=== PATIENT | female | born 1930 | race Caucasian/White ===

== ENCOUNTER 2017-09-28 16:06 | Inpatient (IN) | payer MEDICARE ==
[2017-09-28 16:59] LABS: #Eosinphils 0.3 thou/uL (0.0-0.7); #Lymphocytes 1.3 thou/uL (1.20-3.40); #Monocytes 0.5 thou/uL (0.11-0.59); #Neutrophils 6.3 thou/uL (1.40-6.50); %Basophils 0.3 % (0.0-1.0); %Eosinophils 3.7 % (0.0-10.0); %Lymphocytes 14.9 % (21.0-51.0); %Monocytes 5.6 % (0.0-10.0); %Neutrophils 75.4 % (42.0-75.0); Mean Corpuscular HGB CONC 33.7 g/dL (32.0-36.0); Mean Corpuscular Hemoglobin 32.6 pg (27.0-31.0); Mean Corpuscular Volume 96.6 fl (81.0-99.0); Mean Platelet Volume 8.2 fL (7.4-10.4); Platelet Count 240 thou/uL (130-400); RBC Distribution Width 12.6 % (11.5-14.5); Red Blood Cell (RBC) Count 3.99 mill/uL (4.20-5.40); White Blood Cell (WBC) Count 8.4 thou/uL (4.8-10.8)
--- NOTE | 2017-09-28 17:50 | RAD ---
PORTABLE CHEST: Date: 09/28/17 HISTORY: Fall with injury. FINDINGS: Lungs are clear. Heart size mildly enlarged with aortic calcification noted. Bony thorax appears inta ct. No change from exam of 12/27/16 identified. IMPRESSION: No acute findings. POS: [facility]
--- NOTE | 2017-09-28 17:51 | RAD ---
PORTABLE AP PELVISS: Date: 09/28/17 HISTORY: Fall with injury to right hip. FINDINGS: There is a subcapital fracture of the right hip with slight displacement. I cannot exclude a fracture at the root of the right inferior ramus. Prior internal fixation of the left hip with evidence of healing. IMPRESSION: Acute subcapital fracture right hip. Question fracture of root of right inferior ramus. POS: [facility]
--- NOTE | 2017-09-28 17:52 | RAD ---
RIGHT FEMUR 5 VIEWS: Date: 09/28/17 HISTORY: Fall with injury to right hip. FINDINGS: There is a subcapital fracture of the right hip. Femur is otherwise intact with no other femur fractu re seen. Visualized right pelvis appears intact on these views. IMPRESSION: Subcapital fracture right hip. POS: [facility]
[2017-09-28 18:09] LABS: Albumin 3.6 g/dL (3.4-4.8)
[2017-09-28 18:10] LABS: Calcium 9.2 mg/dL (7.8-10.44); Chloride 99 mmol/L (98-107); Magnesium 1.9 mg/dL (1.6-2.6); Potassium 4.6 mmol/L (3.5-5.1); Sodium 131 mmol/L (136-145)
[2017-09-28 18:11] LABS: Globulin 3.2 g/dL (2.4-3.5); Glucose 112 mg/dL (83-110); Protein, Total 6.8 g/dL (6.0-8.3)
[2017-09-28 18:12] LABS: Anion Gap 13 mmol/L (10-20); Carbon Dioxide 24 mmol/L (23-31)
[2017-09-28 18:13] LABS: Bilirubin, Total 0.2 mg/dL (0.2-1.2)
[2017-09-28 18:14] LABS: Alkaline Phosphatase 93 U/L (40-150); Calc. Creatinine Clearance 0 mL/min (70-130); Estimated GFR-MDRD 66
[2017-09-28 18:15] LABS: BUN (Urea Nitrogen) 23 mg/dL (9.8-20.1)
[2017-09-28 18:16] LABS: AST (SGOT) 16 U/L (5-34)
[2017-09-28 18:17] LABS: ALT (SGPT) 14 U/L (8-55)
--- NOTE | 2017-09-28 22:42 | HP ---
Jesse Almendarez PA-C, dictating for Dr. Todd Zimmerman. CONSULTING PHYSICIAN: Eduardo Meyer M.D. CHIEF COMPLAINT: Evaluation status post fall. HISTORY OF PRESENT ILLNESS: This is an 87-year-old female who is a resident at [facility]. She reported she was trying to get out of the bed; her walker was not close enough, and she fe ll onto herself injuring her hip. She denies any LOC, chest pain, shortness of breath, dizziness, or headache prior to the fall or after. Patient denied any blood thinners. She reported muscular pain in her right leg. REVIEW OF SYSTEMS: All 10 systems were reviewed otherwise stated in HPI were negative. PAST MEDICAL HISTORY: Include CHF, breast cancer, and colon cancer that was treated, and hypothyroid ism. PAST SURGICAL HISTORY: Right breast lumpectomy and colon resection. PSYCHIATRIC HISTORY: No psychiatric history. SOCIAL HISTORY: Denies any alcohol, drug, or tobacco use. PHYSICAL EXAMINATION: VITAL SIGNS: Blood pressure 128/77, heart rate of 85, respiratory rate 22, temperature 98.4, 8/10 pa in. O2 sat 96% on 2 liters. GENERAL: The patient is in no acute distress. HEENT: She is atraumatic, normocephalic. No JVD, no masses. Trachea is midline. Cervical spine is intact and nontender. CHEST: Nontender. RESPIRATORY: Clear bilaterally via auscultation. CARDIOVASCULAR: S1, S2, regular rate and rhythm. ABDOMEN: Soft, nontender, nondistended. Pelvis is intact. She is tender more on the right side jax n the left. EXTREMITIES: Upper extremity, 5/5 strength. Sensation intact. Lower extremity, she has got tendern ess to the right hip exacerbated by movement. Pulses are intact bilaterally. No edema. NEUROLOGIC: GCS 15. LABORATORY VALUES: WBC is 8.4, hemoglobin 13, hematocrit 38.5, platelet count 240. Chemistry: Sodi um 131, potassium 4.6, chloride 99, bicarbonate 24, BUN 23, creatinine 0.82. Glucose 112. RADIOLOGIC FINDINGS: Showed femur and pelvis x-ray showed [facility]capital [facility] Chest x-ray shows no acute disease. ASSESSMENT AND PLAN: 1. Status post fall. 2. Right subcapital hip fracture. 3. History of congestive heart failure. 4. History of cancer. 5. Acute traumatic pain. PLAN: Plan will be admit the patient to surgical floor, made n.p.o. after midnight. Continue with I V fluids. Dr. Meyer has been consulted for potential surgery for tomorrow. Pain will be optimize d with IV and p.o. analgesics. We will initiate gastritis and DVT prophylaxis when appropriate. The patient has been discussed with Dr. Zimmerman at the time of dictation and agreeds with the above pl an.
[2017-09-29] MEDS ORDERED: Fleet Enema 133 ML BOT PR PRN (02:00)
[2017-09-29] MEDS ORDERED: traMADol HCl 50 MG TAB PO PRN ×2 (02:00→22:07)
[2017-09-29] MEDS ORDERED: Milk Of Magnesia 30 ML UDCUP PO PRN (02:00)
[2017-09-29] MEDS ORDERED: Ondansetron ODT 4 MG TAB PO PRN (02:00)
[2017-09-29] MEDS ORDERED: Ondansetron HCl/PF 4 MG/2 ML Vial IVP PRN (02:00)
[2017-09-29] MEDS ORDERED: Bisacodyl 10 MG SUPP PR PRN (02:00)
[2017-09-29 02:22] VITALS: BMI 22.5
[2017-09-29] MEDS: D5 0.9% NS w/ 20 mEq KCl 1,000 ML IV SCH ×2 (02:40→19:34)
[2017-09-29] MEDS: Ketorolac Tromethamine 30 MG/ML VIAL IVP SCH ×4 (02:40→20:05)
[2017-09-29 07:50] LABS: #Eosinphils 0.7 thou/uL (0.0-0.7); #Lymphocytes 1.3 thou/uL (1.20-3.40); #Monocytes 0.6 thou/uL (0.11-0.59); #Neutrophils 10.2 thou/uL (1.40-6.50); %Basophils 0.2 % (0.0-1.0); %Eosinophils 5.1 % (0.0-10.0); %Lymphocytes 9.8 % (21.0-51.0); Hemoglobin 12.8 g/dL (12.0-16.0); Mean Corpuscular HGB CONC 32.3 g/dL (32.0-36.0); Mean Corpuscular Hemoglobin 31.8 pg (27.0-31.0); Mean Corpuscular Volume 98.6 fl (81.0-99.0); Mean Platelet Volume 6.9 fL (7.4-10.4); Platelet Count 229 thou/uL (130-400); RBC Distribution Width 12.2 % (11.5-14.5); Red Blood Cell (RBC) Count 4.04 mill/uL (4.20-5.40); White Blood Cell (WBC) Count 12.7 thou/uL (4.8-10.8)
[2017-09-29 08:11] LABS: Anion Gap 11 mmol/L (10-20); BUN (Urea Nitrogen) 26 mg/dL (9.8-20.1); Calc. Creatinine Clearance 52 mL/min (70-130); Calcium 8.8 mg/dL (7.8-10.44); Carbon Dioxide 24 mmol/L (23-31); Chloride 100 mmol/L (98-107); Estimated GFR-MDRD 70; Glucose 102 mg/dL (83-110); Magnesium 2.2 mg/dL (1.6-2.6); Phosphorus 3.2 mg/dL (2.3-4.7); Potassium 4.8 mmol/L (3.5-5.1); Sodium 130 mmol/L (136-145)
[2017-09-29 08:20] LABS: RBC Morphology Normal
[2017-09-29] MEDS: Docusate 100 MG CAP PO SCH ×2 (08:39→20:05)
[2017-09-29] MEDS ORDERED: CEFAZOLIN/Water 2 GM/20 ML SYRINGE SLOW IVP SCH (08:45)
--- NOTE | 2017-09-29 09:11 | CON ---
DATE OF CONSULTATION: 09/29/2017 REQUESTING PHYSICIAN: Dr. Todd Zimmerman CHIEF COMPLAINT: Right hip pain. HISTORY OF PRESENT ILLNESS: The patient is a pleasant 87-year-old lady who resides at [facility]. She reports that on the evening of 09/28/2017, she was getting up from bed and had her walker slide out from underneath her resulting in a fall and injury to her right hip. She reports no loss of consciousness, no shortness of breath, no dizziness prior to or after her fall. Upon arriva l at [place], her sole complaint was that of right groin pain. Of note, the patient is status pos t left hip fracture in 2016. This was an intertrochanteric fracture treated with a TFN device by Dr. Taqueria Sims. PAST MEDICAL HISTORY: Congestive heart failure, history of breast cancer, history of colon cancer th at was treated and hypothyroidism. PAST SURGICAL HISTORY: Includes right breast lumpectomy and colon resection. MEDICATIONS: Tylenol, carvedilol, vitamin B12, folic acid, furosemide, Mucinex p.r.n., Synthroid, li sinopril, melatonin, simvastatin, spironolactone. ALLERGIES: None known. SOCIAL HISTORY: She denies tobacco, alcohol or drug use. FAMILY HISTORY: Noncontributory. REVIEW OF SYSTEMS: Denies recent fevers, chills or sweats. Denies chest pain or shortness of breath . Denies numbness or tingling in the lower extremity. PHYSICAL EXAMINATION: VITAL SIGNS: Temperature 97.5, heart rate of 95, respiratory rate of 20, and blood pressure 154/79. HEENT: Atraumatic, normocephalic. HEART: Shows a regular rate and rhythm without murmurs. LUNGS: Clear to auscultation bilaterally with good breath sounds. Chest wall is nontender. ABDOMEN: Soft with normal bowel sounds and no tenderness. PELVIS: Stable. EXTREMITIES: Remarkable for bilateral upper extremities that are atraumatic at shoulder, elbow, wris t and hand. A left lower extremity with well healed lateral incision from her prior hip surgery. Kn ee, ankle, foot are atraumatic. The right lower extremity remarkable for no significant shortening. The leg is held in a position of comfort of external rotation at the hip. The knee, ankle and foot appear atraumatic. She does have groin pain with log rolling of the thigh. X-RAYS: Two view x-ray of the femur and AP pelvis x-ray shows a subcapital femoral neck fracture wit h impaction and slight valgus alignment. LABORATORY: She was found to have a white count of 8.4, hematocrit 38.5 and 240,000 platelets. ASSESSMENT: The patient is an 87-year-old lady status post ground level fall sustaining an acute rig ht subcapital femoral neck fracture. Past history includes congestive heart failure and cancer. PLAN: At this time, the patient is n.p.o. We will proceed to take her to the operating room for a r ight hip hemiarthroplasty. I have discussed with patient the risks and benefits of the procedure. T he risks include, but are not limited to bleeding, infection, nerve injury, DVT, PE, hip dislocation, loss of limb or life. The patient appears to understand and does wish to proceed. Consent will be obtained prior to surgery.
[2017-09-29] MEDS ORDERED: Carvedilol 6.25 MG TAB PO SCH (10:15)
[2017-09-29] MEDS ORDERED: Fentanyl 100 MCG/2 ML VIAL ONE ×3 (11:22→13:40)
[2017-09-29] MEDS ORDERED: Midazolam HCl 2 mg/2 ml Vial ONE (11:22)
[2017-09-29] MEDS ORDERED: Dexamethasone 4 mg/ml Vial ONE (11:38)
[2017-09-29] MEDS ORDERED: CEFAZOLIN/Water 2 GM/20 ML SYRINGE ONE (12:07)
[2017-09-29] MEDS ORDERED: Bupivacaine PF 0.5% 30 ML VIAL ONE (13:43)
[2017-09-29] MEDS ORDERED: Bupivacaine HCl 0.5%/Epinephrine 1:200,000/PF 30 ml Vial ONE (13:43)
[2017-09-29] MEDS ORDERED: Metoprolol Tartrate 5 MG/5 ML VIAL ONE (13:45)
[2017-09-29] MEDS ORDERED: Propofol 200 MG/20 ML VIAL ONE (13:45)
--- NOTE | 2017-09-29 16:58 | EKG ---
Test Reason : Blood Pressure : / mmHG Vent. Rate : 084 BPM Atrial Rate : 084 BPM P-R Int : 182 ms QRS Dur : 094 ms QT Int : 404 ms P-R-T Axes : 038 015 117 degrees QTc Int : 477 ms Sinus rhythm with occasional Premature ventricular complexes Possible Left atrial enlargement Abnormal ECG When compared with ECG of 27-DEC-2016 05:31, (Unconfirmed) Premature ventricular complexes are now Present T wave inversion more evident in Anterior leads Confirmed by DR. Carla LAMAR ([id number]) on 09/29/2017 4:58:10 PM Referred By: Confirmed By:DR. Carla LAMAR
--- NOTE | 2017-09-29 17:14 | RAD ---
SINGLE CROSS TABLE LATERAL VIEW RIGHT HIP: Date: 09-29-17 History: Post right hip hemiarthroplasty. Comparison: AP pelvis 09-29-17 FINDINGS: Post-surgical changes related to right total hip prosthesis are noted. No hardware complication is se en. Vascular calcifications are seen in the femoral arteries with skin clips seen lateral to the hip. IMPRESSION: Post-surgical change related to recent right total hip prosthesis. POS: [facility]
--- NOTE | 2017-09-29 17:15 | RAD ---
PELVIS ONE VIEW: History: Right hip pain, arthroplasty. Comparison: Pelvic radiograph prior day. FINDINGS: Satisfactory appearance right hip arthroplasty. Extensive vascular calcifications. Expected post-operative gas and edema. The right hip arthroplasty is incompletely evaluated. IMPRESSION: Satisfactory appearance of the visualized portion of the right hip hemiarthroplasty. POS: [facility]
--- NOTE | 2017-09-29 17:37 | OP ---
DATE OF PROCEDURE: 09/29/2017 PREOPERATIVE DIAGNOSIS: Right femoral neck fracture. POSTOPERATIVE DIAGNOSIS: Right femoral neck fracture. COMPLICATIONS: None. ESTIMATED BLOOD LOSS: 200 mL. SURGEON: Gurpreet Espana M.D. COUNSELOR DORMITORY: Anastasiia Nam PA-C. INDICATIONS: Ms. Clement is an 87-year-old female who has fallen. She sustained a right femoral ne ck fracture with displacement. She was indicated for hemiarthroplasty of the hip to restore function and relieve pain as well as promote early mobilization. Risks have been reviewed in detail. IMPLANTS: DePuy bipolar hemiarthroplasty size 5 cemented stem, size 49, bipolar shell +1.5. DESCRIPTION OF PROCEDURE: Ms. Clement is an 87-year-old female. She was identified in the preopera tive holding area. Her extremity was marked. She was carried to the operating room. She was positi oned supine. A spinal anesthetic was placed. She was converted to the lateral decubitus position. We then proceeded with a posterior approach to the hip. We dissected down through the subcutaneous t issues to the fascia, which was incised. This exposed the underlying short external rotators, which were subperiosteally divided from the proximal femur. We performed a capsulotomy. At this point, th e femoral head was removed. We performed a new osteotomy of the femoral neck using an oscillating sa w. At this point, we copiously lavaged and cleared the acetabulum of bony fragments. We then prepar ed the femur with a canal finder followed by a reamer up to a size 5. We then broached to a size 5. We decided to cement this hip, given that the patient's bone was exceedingly brittle and thin. We p repared the canal with a and mixed cement on the back table. We then implanted our size 5 stem . This was held until fully hardened. We then trialed. A +1.5 bipolar shell and head was appropria te for stability. This was a size 49 mm. We placed this final components and reduced the hip. We t hen closed the short external rotators and capsule with a #5 Ethibond suture through drill holes and #1 Vicryl suture, 2-0 Vicryl suture and gaurang were used. Sterile dressing was applied. The patien t was taken to the recovery room in good condition without complication.
[2017-09-29] MEDS: Enoxaparin Sodium 40 MG/0.4 ML SYRINGE SC SCH (20:05)
[2017-09-29] MEDS: CEFAZOLIN/Water 2 GM/20 ML SYRINGE SLOW IVP SCH (20:05)
[2017-09-29] MEDS ORDERED: Polyethylene Glycol 3350 17 GM Packet PO PRN (22:05)
--- NOTE | 2017-09-29 23:38 | PRG ---
DATE OF SERVICE: 09/29/2017 SUBJECTIVE: This is an 87-year-old female, hospital day #2, postop day #0 status post mechanical fal l and repair of resultant hip fracture. Upon my evaluation, the patient states her pain is controlle d and vocalized no complaints. OBJECTIVE: VITAL SIGNS: Reviewed and stable. O2 sats 94% on 2 to 3 liters via nasal cannula. GENERAL: The patient is resting in bed and in no acute distress. Breathing is nonlabored. EXTREMITIES: Moves all extremities x4. No focal deficits noted. ASSESSMENT AND PLAN: As documented in daily progress note. Continue care as ordered. Postoperative pain management. PT and OT in the morning.
[2017-09-29] MEDS: traMADol HCl 50 MG TAB PO SCH (23:44)
[2017-09-29] MEDS: Acetaminophen 500 MG TAB PO SCH (23:45)
[2017-09-30] MEDS: Ketorolac Tromethamine 30 MG/ML VIAL IVP SCH ×4 (03:12→23:04)
[2017-09-30] MEDS: CEFAZOLIN/Water 2 GM/20 ML SYRINGE SLOW IVP SCH (03:13)
[2017-09-30 04:46] LABS: #Eosinphils 0.1 thou/uL (0.0-0.7); #Lymphocytes 0.8 thou/uL (1.20-3.40); #Monocytes 0.5 thou/uL (0.11-0.59); #Neutrophils 10.4 thou/uL (1.40-6.50); %Eosinophils 0.7 % (0.0-10.0); %Monocytes 4.3 % (0.0-10.0); Hemoglobin 10.8 g/dL (12.0-16.0); Mean Corpuscular HGB CONC 32.6 g/dL (32.0-36.0); Mean Corpuscular Hemoglobin 31.9 pg (27.0-31.0); Mean Corpuscular Volume 97.9 fl (81.0-99.0); Mean Platelet Volume 7.4 fL (7.4-10.4); Platelet Count 210 thou/uL (130-400); RBC Distribution Width 12.1 % (11.5-14.5); White Blood Cell (WBC) Count 11.8 thou/uL (4.8-10.8)
[2017-09-30 05:09] LABS: Anion Gap 10 mmol/L (10-20); BUN (Urea Nitrogen) 28 mg/dL (9.8-20.1); Calc. Creatinine Clearance 51 mL/min (70-130); Calcium 8.5 mg/dL (7.8-10.44); Carbon Dioxide 25 mmol/L (23-31); Chloride 103 mmol/L (98-107); Estimated GFR-MDRD 69; Glucose 124 mg/dL (83-110); Magnesium 2.1 mg/dL (1.6-2.6); Phosphorus 2.9 mg/dL (2.3-4.7); Potassium 5.2 mmol/L (3.5-5.1); Sodium 133 mmol/L (136-145)
[2017-09-30] MEDS: Levothyroxine Sodium 88 MCG TAB PO SCH (05:13)
[2017-09-30] MEDS: Acetaminophen 500 MG TAB PO SCH ×3 (05:14→17:42)
[2017-09-30] MEDS: traMADol HCl 50 MG TAB PO SCH ×3 (05:14→17:41)
[2017-09-30] MEDS: Simvastatin 20 MG TAB PO SCH (08:47)
[2017-09-30] MEDS: Docusate 100 MG CAP PO SCH ×2 (08:48→22:12)
[2017-09-30] MEDS: Lisinopril 5 MG TAB PO SCH (08:48)
[2017-09-30] MEDS: FLUoxetine HCl 20 MG CAP PO SCH (08:48)
[2017-09-30] MEDS: Carvedilol 6.25 MG TAB PO SCH ×2 (08:49→22:14)
[2017-09-30] MEDS: Folic Acid 1 MG TAB PO SCH (08:49)
[2017-09-30] MEDS ORDERED: Spironolactone 25 MG TAB PO SCH (09:00)
[2017-09-30] MEDS ORDERED: Furosemide 40 MG TAB PO SCH (09:00)
[2017-09-30] MEDS: Magnesium Oxide 400 MG TAB PO SCH (09:47)
[2017-09-30] MEDS ORDERED: Hydrocortisone Sod Succ/PF 100 mg/2 ml Vial IVP SCH (17:15)
--- NOTE | 2017-09-30 17:49 | PRG ---
DATE OF SERVICE: 09/30/2017 ATTENDING PHYSICIAN: Kali Silvestre DO SUBJECTIVE: The patient is an 87-year-old female who lives at [facility]. She was at tempting to get out of bed, but her walker was not close enough and she fell on her right hip. She w as brought to the [place] ED and evaluated and found to have a right femoral neck fracture with di splacement. She is now postop day #1 status post right hip hemiarthroplasty. She tolerated the proc edure well and has been stable on the floor with no complaints this morning. OBJECTIVE: VITAL SIGNS: BP 132/68, pulse 82, temperature 97.6, respirations 16, O2 sat 93% on room air. GENERAL: Elderly female, in no acute distress, lying in bed. HEENT: Normocephalic and atraumatic. She has JVD to just below the angle of the mandible. RESPIRATORY: Her lungs are clear to auscultation bilaterally. CARDIOVASCULAR: She has regular rate and rhythm. Normal S1 and S2. ABDOMEN: Soft, nontender, nondistended. Bowel sounds are normal. EXTREMITIES: She is neurovascularly intact x4. NEUROLOGIC: She is A&O x3 this morning. She has a GCS of 15. LABORATORY DATA: Hematology: WBC is 11.8, hemoglobin 10.8, hematocrit 33.3, platelets 210. Human Resources Manager ry: Sodium 133, potassium 5.2, chloride 103, bicarbonate 25, BUN 28, creatinine 0.79, glucose 124, c alcium 8.5, phosphorus 2.9, magnesium 2.1. RADIOGRAPHIC FINDINGS: There are no radiographs to review. ASSESSMENT: 1. Status post fall. 2. Right femoral neck fracture. 3. History of congestive heart failure. 4. History of cancer. 5. Acute traumatic pain. PLAN: 1. Continue supportive care and pain control. The patient has been restarted on some of her home me dications and tolerating p.o. meds well. 2. The patient is likely going to require residential. Case management is following and current ly awaiting a residential facility approval. This patient was seen and examined along with Dr. aKli Silvestre on rounds, agrees with assessment and plan.
[2017-09-30] MEDS: Melatonin 3 MG TAB PO SCH (22:12)
[2017-09-30] MEDS: Enoxaparin Sodium 40 MG/0.4 ML SYRINGE SC SCH (22:13)
[2017-09-30] MEDS: Hydrocortisone Sod Succ/PF 100 mg/2 ml Vial IVP SCH (22:35)
[2017-10-01] MEDS: Acetaminophen 500 MG TAB PO SCH ×4 (00:32→17:30)
[2017-10-01] MEDS: traMADol HCl 50 MG TAB PO SCH ×4 (00:32→17:31)
[2017-10-01] MEDS: Ketorolac Tromethamine 30 MG/ML VIAL IVP SCH (03:32)
[2017-10-01] MEDS: Hydrocortisone Sod Succ/PF 100 mg/2 ml Vial IVP SCH ×3 (06:01→21:40)
[2017-10-01] MEDS: Levothyroxine Sodium 88 MCG TAB PO SCH (06:03)
[2017-10-01] MEDS: Folic Acid 1 MG TAB PO SCH (08:19)
[2017-10-01] MEDS: Magnesium Oxide 400 MG TAB PO SCH (08:20)
[2017-10-01] MEDS: Simvastatin 20 MG TAB PO SCH (08:20)
[2017-10-01] MEDS: Carvedilol 6.25 MG TAB PO SCH ×2 (08:20→17:53)
[2017-10-01] MEDS: Lisinopril 5 MG TAB PO SCH (08:20)
[2017-10-01] MEDS: FLUoxetine HCl 20 MG CAP PO SCH (08:20)
[2017-10-01] MEDS: Docusate 100 MG CAP PO SCH (08:20)
[2017-10-01 08:25] LABS: Anion Gap 9 mmol/L (10-20); BUN (Urea Nitrogen) 38 mg/dL (9.8-20.1); Calc. Creatinine Clearance 56 mL/min (70-130); Calcium 8.5 mg/dL (7.8-10.44); Carbon Dioxide 24 mmol/L (23-31); Chloride 101 mmol/L (98-107); Estimated GFR-MDRD 77; Glucose 103 mg/dL (83-110); Magnesium 2.1 mg/dL (1.6-2.6); Phosphorus 3.1 mg/dL (2.3-4.7); Potassium 4.9 mmol/L (3.5-5.1); Sodium 129 mmol/L (136-145)
[2017-10-01] MEDS ORDERED: Furosemide 40 MG/4 ML VIAL SLOW IVP SCH (12:00)
--- NOTE | 2017-10-01 16:15 | PRG ---
DATE OF SERVICE: 10/01/2017 ATTENDING PHYSICIAN: Dr. Kali Silvestre. SUBJECTIVE: The patient is an 87-year-old female who comes from [facility]. She is postop day #2 status post right hip hemiarthroplasty after suffering a ground level fall at h ome. Postoperatively, she has had episodes of hypotension along with decreased urine output. She, h owever, has a history of congestive heart failure and has needed oxygen supplementation as well. Thi s morning, she appears stable and voices no complaints. OBJECTIVE: VITAL SIGNS: Blood pressure 133/73, pulse 86, temperature 97.9, respirations 14, O2 sat 92% on room air. GENERAL: Elderly female in no acute distress, lying in bed. HEENT: She is normocephalic and atraumatic. NECK: She has no JVD this morning. RESPIRATORY: Her breath sounds are clear to auscultation bilaterally with normal effort. CARDIOVASCULAR: She has a regular rate and rhythm. No murmurs, gallops or rubs. No observable JVD. ABDOMEN: Soft, nontender, nondistended. Bowel sounds are normal. EXTREMITIES: She is neurovascularly intact x4. NEUROLOGIC: She is alert and oriented x3 and has a GCS of 15. LABORATORY DATA: Chemistry: Sodium 129, potassium 4.9, chloride 101, bicarbonate 24, BUN 38, creati nine 0.72, glucose 103, calcium 8.5, phosphorus 3.1, magnesium 2.1. RADIOGRAPHIC FINDINGS: There are no radiographs reviewed today. ASSESSMENT: 1. Status post fall. 2. Right femoral neck fracture. 3. History of congestive heart failure. 4. History of cancer. 5. Acute traumatic pain. 6. Intermittent hypotension. PLAN: 1. Continue supportive care and pain control as ordered. We will continue to encourage incentive sp irometry. 2. Patient's cortisol was low yesterday. She was given 100 mg of hydrocortisone and started on 50 m g q.8 hours. Her blood pressure has since improved. Patient was restarted on Lasix given history of congestive heart failure. We will continue to monitor I's and O's, kidney function and adjust the me dications as appropriate per labs and clinical exam. 3. Patient currently awaiting assisted facility approval. Case management is following. This patient was seen and examined along with Dr. Kali Silvestre at rounds and agrees with the assessm ent and plan.
[2017-10-01] MEDS: Senokot S 8.6-50 MG TAB PO SCH (20:17)
[2017-10-01] MEDS: Enoxaparin Sodium 40 MG/0.4 ML SYRINGE SC SCH (20:18)
[2017-10-01] MEDS: Melatonin 3 MG TAB PO SCH (20:18)
[2017-10-02] MEDS: traMADol HCl 50 MG TAB PO SCH ×3 (00:28→11:58)
[2017-10-02] MEDS: Acetaminophen 500 MG TAB PO SCH ×3 (00:28→11:58)
[2017-10-02] MEDS: Hydrocortisone Sod Succ/PF 100 mg/2 ml Vial IVP SCH (06:36)
[2017-10-02] MEDS: Levothyroxine Sodium 88 MCG TAB PO SCH (06:39)
[2017-10-02] MEDS ORDERED: Furosemide 40 MG TAB PO SCH (07:30)
[2017-10-02] MEDS ORDERED: Hydrocortisone Sod Succ/PF 100 mg/2 ml Vial IVP SCH ×2 (07:41→08:00)
[2017-10-02] MEDS: Carvedilol 6.25 MG TAB PO SCH (08:11)
[2017-10-02] MEDS: Folic Acid 1 MG TAB PO SCH (08:11)
[2017-10-02] MEDS: Magnesium Oxide 400 MG TAB PO SCH (08:12)
[2017-10-02] MEDS: FLUoxetine HCl 20 MG CAP PO SCH (08:12)
[2017-10-02] MEDS: Simvastatin 20 MG TAB PO SCH (08:12)
[2017-10-02] MEDS: Lisinopril 5 MG TAB PO SCH (08:12)
[2017-10-02] MEDS ORDERED: Bisacodyl 10 MG SUPP PR SCH (09:00)
[2017-10-02] MEDS ORDERED: Polyethylene Glycol 3350 17 GM Packet PO SCH (09:00)
[2017-10-02] MEDS: Senokot S 8.6-50 MG TAB PO SCH (10:38)
[2017-10-02 12:31] VITALS: BP 97/59; TEMP 97.5
--- NOTE | 2017-10-03 02:29 | DIS ---
DATE OF ADMISSION: 09/28/2017 DATE OF DISCHARGE: 10/02/2017 ADMITTING PHYSICIAN: Todd Zimmerman M.D. DISCHARGING PHYSICIAN: Kali Silvestre D.O. CHIEF COMPLAINT: Evaluation status post fall. HISTORY OF PRESENT ILLNESS: The patient is an 87-year-old female who is a resident at [facility]. She had a ground level fall getting out of bed when she injured her hip. She had no lo ss of consciousness, chest pain, shortness of breath, dizziness or headache prior to the fall or afte r. Radiologic findings showed that she had a subcapital femoral head fracture on the right. Orthope dic surgery was consulted. The decision was made to do a right hip hemiarthroplasty. This was perfo rmed on 09/29/2017. The patient was returned to the surgical floor in stable condition. She was dis charged on 10/02/2017. The patient's hospital stay was complicated somewhat by her history of conges tive heart failure, requiring a careful fluid maintenance and oxygen supplementation. The patient be came hypotensive postoperatively. Serum cortisol was drawn with a value of 3.10 suggesting some amou nt of adrenal insufficiency. She was given 100 mg of hydrocortisone and started on 25 mg q.8 hours, after which her blood pressure normalized. She was kept an extra day in the hospital just to ensure stability and discharged in good condition on 10/02/2017. DISCHARGE MEDICATIONS: The [facility] with all of her inpatient med ications continued. ACTIVITY INSTRUCTIONS: The patient discharged with orthopedic limitations including weightbearing as tolerated on the right lower extremity and posterior hip precautions. NOURISHMENT INSTRUCTIONS: The patient discharged on a regular diet. THERAPY INSTRUCTIONS: The patient to receive physical therapy and occupational therapy while in [facility]. FOLLOWUP INSTRUCTIONS: The patient was instructed to follow up with her primary care provider, Dr. Dimitri Mcpherson in 7 to 10 days. The patient also instructed to follow up with Dr. Gurpreet Espana in 14 days. This patient was seen and examined along with Dr. Kali Silvestre who agrees with this discharge plan.
== END 2017-10-02 15:40 | DRG 470 ==
LOC: ERS 16:06 → SURG A 21:45
PROVIDERS: ADMIT Specialist; ATTEND Specialist
PROC: 0SRR019 Replacement of Right Hip Joint, Femoral Surface with Metal Synthetic Substitute, Cemented, Open Approach (ICD-10-PCS; principal; 2017-09-29)
PROC: 3E0T3BZ Introduction of Anesthetic Agent into Peripheral Nerves and Plexi, Percutaneous Approach (ICD-10-PCS; 2017-09-29)
DX: S72.011A Unspecified intracapsular fracture of right femur, initial encounter for closed fracture (principal); E27.40 Unspecified adrenocortical insufficiency; I95.9 Hypotension, unspecified; I50.9 Heart failure, unspecified; W06.XXXA Fall from bed, initial encounter; E03.9 Hypothyroidism, unspecified; Z87.81 Personal history of (healed) traumatic fracture
CPT/HCPCS: 36415; 71045; 72170; 80048; 80053; 82533; 83735; 84100; 85025; 93005; 93010; 93306; 94640; 94760; 96374; 96376; A4216; C1713; C1781; G0390; G8978-GP-CM; G8979-GP-CK; G8987-GO-CL; G8988-GO-CJ; J0670; J1100; J1650; J1720; J1885; J1940; J2250; J2270; J2704; J3010; J7620; S0020

== ENCOUNTER 2018-07-17 07:13 | Emergency (ER) | payer MEDICARE ==
[2018-07-17 08:22] LABS: #Eosinphils 0.3 thou/uL (0.0-0.7); #Lymphocytes 0.9 thou/uL (1.20-3.40); #Monocytes 0.7 thou/uL (0.11-0.59); #Neutrophils 7.9 thou/uL (1.40-6.50); %Basophils 0.1 % (0.0-1.0); %Eosinophils 3.3 % (0.0-10.0); %Lymphocytes 9.3 % (21.0-51.0); %Monocytes 6.8 % (0.0-10.0); %Neutrophils 80.6 % (42.0-75.0); Hemoglobin 10.9 g/dL (12.0-16.0); Mean Corpuscular HGB CONC 31.9 g/dL (32.0-36.0); Mean Corpuscular Hemoglobin 30.1 pg (27.0-31.0); Mean Corpuscular Volume 94.3 fL (78.0-98.0); Mean Platelet Volume 6.6 fL (7.4-10.4); Platelet Count 353 thou/uL (130-400); RBC Distribution Width 13.1 % (11.5-14.5); Red Blood Cell (RBC) Count 3.64 mill/uL (4.20-5.40); White Blood Cell (WBC) Count 9.8 thou/uL (4.8-10.8)
--- NOTE | 2018-07-17 08:27 | RAD ---
RIGHT HIP 2 VIEWS: HISTORY: Pain. Fall. COMPARISON: None. FINDINGS: No acute fracture. The right obturator ring appears to be intact. No evidence for hardware complica tion. Mild vascular calcifications. IMPRESSION: No evidence for perihardware fracture. POS: [facility]
[2018-07-17 08:33] LABS: Bilirubin Negative (Negative); Blood, Urine Negative (Negative); Clarity CLOUDY (Clear); Glucose, Urine (Dipstick) Negative (Negative); Leukocyte Negative (Negative); Nitrite Negative (Negative); Protein, Urine (Dipstick) Negative (Neg-Trace); Specific Gravity, Urine 1.014 (1.002-1.036); Urobilinogen 0.2 mg/dL (0.2-1.0)
[2018-07-17 08:53] LABS: ALT (SGPT) 11 U/L (8-55); AST (SGOT) 14 U/L (5-34); Albumin 3.4 g/dL (3.4-4.8); Alkaline Phosphatase 133 U/L (40-150); Anion Gap 11 mmol/L (10-20); BUN (Urea Nitrogen) 23 mg/dL (9.8-20.1); Bilirubin, Total 0.3 mg/dL (0.2-1.2); Calc. Creatinine Clearance 0 mL/min (70-130); Calcium 8.9 mg/dL (7.8-10.44); Carbon Dioxide 23 mmol/L (23-31); Chloride 104 mmol/L (98-107); Estimated GFR-MDRD 62; Globulin 3.5 g/dL (2.4-3.5); Glucose 102 mg/dL (83-110); Potassium 4.5 mmol/L (3.5-5.1); Protein, Total 6.9 g/dL (6.0-8.3); Sodium 133 mmol/L (136-145)
--- NOTE | 2018-07-17 09:02 | RAD ---
RIGHT FEMUR TWO VIEWS: History: 88-year-old female with history of right hip pain following a fall one week ago. FINDINGS: Total right hip replacement changes noted. No evidence for periprosthetic fracture or dislocation. IMPRESSION: Right total hip replacement. No periprosthetic fracture or dislocation. POS: [facility]
--- NOTE | 2018-07-17 09:25 | RAD ---
PELVIC RADIOGRAPH: Date: 07-17-18 Provided Clinical History: Fall with right hip pain. FINDINGS: Comparison 09-29-17. Post-operative changes of right hip arthroplasty are partially visualized without evidence for hardwa re complication. Post-operative involving the left hip are partially visualized without apparent inte rval change. No definite evidence for fracture or other acute osseous abnormality. If there is persis tent clinical concern, conservative management and follow up imaging are advised. IMPRESSION: As above. POS: [facility]
== END 2018-07-17 11:22 ==
LOC: ERS 07:13
DX: M25.551 Pain in right hip (principal); E78.5 Hyperlipidemia, unspecified; E03.9 Hypothyroidism, unspecified; Z79.899 Other long term (current) drug therapy; I50.9 Heart failure, unspecified; W17.89XA Other fall from one level to another, initial encounter
CPT/HCPCS: 36415; 51701; 72170; 80053; 81003; 85025; A4353